=== PATIENT | female | born 1965 | race Caucasian/White ===

== ENCOUNTER → 2018-07-09 | Outpatient (CLI) | payer OTHER ==
[~2018-07-09] VITALS: Ht 157.5 cm; Wt 65.8 kg
[~2018-07-09] MED LIST: ACETAMINOPHEN-1 EAC1 PO; BIRTH CONTROL PO; FLEXERIL PO; HYDROCODON-ACE1 EAC7 PO; MEDROL DOSPAK21 TA1 PO
[2018-07-09 09:03] VITALS: BP 141/86
--- NOTE | 2018-07-09 09:26 | NUR ---
Pain Clinic Assessment: 1. History of Osteoarthritis: NONE OSTEOPHYTE IN SPINE History of Rheumatoid Arthritis: NONE 2. Height: 5 ft. 2 in. 157.5 cm. Weight: 145.0 lb. oz. 65.772 kg. Patient's BMI: 26.5 3. Vital Signs: BP: 141/86 Pulse: 93 Resp: 14 Temp: 02 Sat: 97 ECG Mon: 4. Pain Intensity: 8-9 5. Fall Risk: Dizziness: Y Needs help standing or walking: N Fallen in the last 3 months: N Fall risk comments: 6. Patient on Blood Thinner: None 7. History of Hypertension: N 8. Opioid Therapy greater than 6 weeks: Opiate Contract Signed: 9. Risk Assessment Tool Provided: 10. Functional Assessment Tool: 11. Recreational Drug Use: Never Drug Type: Tobacco Use: Never Smoker Tobacco Type: Amount or Packs/day: How Many Years: Alcohol Use: No Frequency: Quant:
--- NOTE | 2018-07-10 12:39 | HPC ---
[facility] [address] [place] [address] PAIN MANAGEMENT CONSULTATION Name: OMAR SUTHERLAND Room #: REG [facility]..#: [id number] Admission: 07/09/18 ������������������ Attend Phys: Abad Mac DO Discharge: ������������������ Date of : 67 Report #: [id number] THIS REPORT FOR: //name// CC: Verona Will [facility] physician/PCP Abad Mac DATE OF SERVICE: 07/09/2018 REFERRING PHYSICIAN: Nurse practitioner, Verona Will. CHIEF COMPLAINT: Neck pain, right upper extremity pain with paresthesias. HISTORY OF PRESENT ILLNESS: As you know, the patient is a very pleasant 52-year-old female who had a long-standing history of neck pain, right upper extremity pain with paresthesias. The patient states the pain began without inciting injury or trauma in 2005. She stated at that time, she was mainly experiencing cervical pain without radiation into the hand. Over the past couple of months, after a game of pickle ball, the patient began to experience increasing right neck pain radiating into the hand. She denies any specific injury or trauma that may have led to symptom occurrence. She sought evaluation through her primary care physician, who gave her a physician-directed physical therapy program to begin at home. This along with the use of a Depo-Medrol shot in the right buttock area and a Medrol Dosepak began to improve symptoms, but unfortunately, only transiently. She was subsequently sent for MRI of the cervical spine, which showed changes at the C5-C6 level and she was then referred to our clinic to discuss options for treatment, as conservative measures have been ineffective. The patient reports today pain is continuous, steady and constant; describes the pain as burning, crushing, gnawing, throbbing, sharp, stabbing, tender, numbness and tingling. Places current pain score at 8.5/10, daily average at 8-10/10 and worst the pain has been is "43/10". The patient indicates pain is exacerbated with lying on her side or sitting in any position. Exercise and ice tends to improve symptoms. She has been referred to our service for evaluation for potential cervical radiculopathy. PAST MEDICAL HISTORY: Noncontributory. PAST SURGICAL HISTORY: 1. Jaw augmentation with dental implant. 2. Cholecystectomy. 3. Ankle surgery. SOCIAL HISTORY: The patient denies tobacco, alcohol, IV or illicit drug use. 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 [place] [address] PAIN MANAGEMENT CONSULTATION Name: OMAR SUTHERLAND Room #: REG [facility] Alissa.#: [id number] Admission: 07/09/18 ������������������ Attend Phys: Abad Mac DO Discharge: ������������������ Date of : 67 Report #: [id number] receiving workmen's compensation nor is she trying to obtain disability benefits. She is not in litigation in regards to her pain. She is unaccompanied at today's visit. REVIEW OF SYSTEMS: Positive for recent weight change, fatigue and weakness, frequent and recurrent headaches, wearing corrective eyewear, lightheadedness and dizziness, numbness and tingling sensations and chronic right neck pain. All other review of systems negative per 12-point review of systems, other than those listed in the history of present illness. Pain impact score 60/70, indicating near-complete interference in daily activities secondary to pain. ALLERGIES: BENADRYL. CURRENT MEDICATIONS: Tylenol 3 with codeine 1 tab p.o. at bedtime, cyclobenzaprine 10 mg t.i.d. p.r.n., Medrol Dosepak 4 mg dose 2 tabs remaining and daily control pill. IMAGING DATA: MRI of the cervical spine obtained 06/27/2018 shows C2-C3, C3-C4 unremarkable. C4-C5 shows minimal disk bulge, no central canal neural foraminal stenosis. C5-C6, general disk osteophyte complex with paracentral disk protrusion, measuring 5 mm, contacting anterior spinal cord, resulting in moderate right paracentral canal narrowing all the way down to a 6-7 mm; mild left and moderate right neural foraminal stenosis due to uncovertebral joint hypertrophy. C6-C7 and C7-T1 unremarkable. PHYSICAL EXAMINATION: VITAL SIGNS: Blood pressure 141/86, pulse is 93, respiratory rate 14 and unlabored. The patient is 97% on room air. Height 5 feet 2 inches tall, weight 145 pounds and BMI calculated 26.5. GENERAL: Well-developed, well-nourished and well-hydrated 52-year-old female. She appears her stated age. She is in no acute distress. She is awake, alert and oriented x 3. Current pain score is rated at 8.5/10. HEENT: Normocephalic, atraumatic. Pupils equal, round and reactive to light. Extraocular muscles are intact. Sclerae nonicteric, without injection. NEUROLOGIC: Cranial nerves 2-12 grossly intact. Speech is fluent. The patient deemed an excellent historian. LUNGS: Clear. No wheezes, rhonchi or rales. CARDIOVASCULAR: Regular. No appreciable gallop. No rub. ABDOMEN: Soft, nontender and nondistended. Normoactive bowel sounds. EXTREMITIES: Show no clubbing, no cyanosis and no edema. MUSCULOSKELETAL: Upper extremity strength is equal and symmetrical, 5/5. Muscle bulk and tone equal and symmetrical when comparing left upper extremity to right. She has equal and symmetrical deep tendon reflexes at biceps, brachialis and triceps, 2+/4. Normal capillary refill in the hands bilaterally. [facility] [address] [place] [address] PAIN MANAGEMENT CONSULTATION Name: OMAR SUTHERLAND [id number] Admission: 07/09/18 ������������������ Attend Phys: Abad Mac DO Discharge: ������������������ Date of : 67 Report #: [id number] There is decreased tactile sensation along the C5 dermatome on the right when compared to the left, noted with light touch and normal pinprick sensation. Spurling's test positive right, negative left. There is a limitation to rotation and lateral flexion to the right due to increasing pain; negative symptoms to the left. ASSESSMENT: 1. Cervical radiculopathy. 2. Displacement of cervical intervertebral disk with radiculopathy. 3. Cervical spondylosis with radiculopathy. 4. Chronic intractable pain. PLAN: 1. Based on today's physical exam, the history the patient provides, the description of the patient uses in regards to pain as well as the distribution of symptoms and the findings of the MRI at the C5-C6 level, the likely source of the patient's pain is a cervical radiculopathy. We discussed with the patient treatment options for cervical radiculopathy. The following was discussed with the patient today. We discussed formalized physical therapy program with traction techniques. This could provide some improvement in symptoms. The patient is currently under physician-controlled home physical therapy program, which apparently is providing only improvement in mobility, but has not improved overall pain. We discussed medication management, adding neuropathic pain medications in the form of either gabapentin, Lyrica, nortriptyline, amitriptyline or Cymbalta. We discussed cervical epidural injection under fluoroscopic guidance, for which the patient was referred to our clinic. We discussed spinal cord stimulator therapy as an option as well as surgical options. After reviewing the risks and benefits of all proposed treatment options, the patient chose to move forward with a cervical epidural injection. 2. The patient was advised that third democrat payer restrictions require that authorization be obtained before the patient could undergo a cervical epidural injection. Authorization should be done within the next 6-8 hours as the patient ensured is a same-day approval process. We will begin the process immediately. We will have the patient return as quickly as possible once we have received this authorization. 3. Per the patient's request, we made no changes in medication management. We did discuss the opportunity to start neuropathic medications, but at this point, the patient does not wish to initiate medications if she can avoid doing so. We will discuss this again at followup visit if needed. 4. We wish to thank nurse practitioner, Verona Will, for the referral of the patient to our clinic. We will keep you apprised of her response to treatment as we address her cervical radicular symptoms involving her neck and right upper [address] [address] PAIN MANAGEMENT CONSULTATION Name: OMAR SUTHERLAND Room #: REG [facility] Guerra#: [id number] Admission: 07/09/18 ������������������ Attend Phys: Abad Mac DO Discharge: ������������������ Date of : 67 Report #: [id number] extremity. Again, we wish to thank you for the opportunity to see this patient in consultation. ��������������������������������������������� <ELECTRONICALLY SIGNED> ���������������������������������������� By: Abad Mac DO ��������������������������������������������� 07/10/18 [id number] Abad Mac DO /nt
== END ==
LOC: PAIN 06:57
DX: M50.122 Cervical disc disorder at C5-C6 level with radiculopathy (principal); M47.22 Other spondylosis with radiculopathy, cervical region; G89.4 Chronic pain syndrome; R20.2 Paresthesia of skin; Z90.49 Acquired absence of other specified parts of digestive tract

== ENCOUNTER → 2018-07-10 | Outpatient (CLI) | payer OTHER ==
[~2018-07-10] VITALS: Ht 157.5 cm; Wt 65.8 kg
--- NOTE | ~2018-07-10 | HPC ---
[facility] [address] [place] [address] PAIN MANAGEMENT CONSULTATION Name: OMAR SUTHERLAND Room #: REG [facility].#: [id number] Admission: 07/10/18 ������������������ Attend Phys: Abad Mac DO Discharge: ������������������ Date of : 67 Report #: [id number] THIS REPORT FOR: //name// CC: Verona Will NP [facility] physician/PCP Abad Mac DATE OF SERVICE: 07/10/2018 CHIEF COMPLAINT: Neck pain, right upper extremity pain and paresthesias. HISTORY OF PRESENT ILLNESS: As you know, the patient is a very pleasant 52-year-old female who was seen in consultation yesterday for cervical radiculopathy. The patient states that she began experiencing pain in 2005. She "just put up with it," but unfortunately her symptoms began to increase. She subsequently followed up with her nurse practitioner who sent her for MRI. The findings were such the patient was then referred to our clinic to discuss possible cervical epidural injections or other treatment options for cervical radiculopathy. The patient was seen yesterday, but precertification was required before she could undergo her requested cervical epidural injection. She made today's appointment to undergo the procedure in hopes of improving pain. Today, she is placing pain at 8-9/10. She returns to undergo the first in series of cervical epidural injections under fluoroscopic guidance. ALLERGIES: BENADRYL. CURRENT MEDICATIONS: Tylenol 3 with Codeine, cyclobenzaprine, hydrocodone. SOCIAL HISTORY: The patient denies tobacco, alcohol, IV or illicit drug use. 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 She is working, not receiving workmen's compensation, unaccompanied today. IMAGING: No new imaging available. PHYSICAL EXAMINATION: VITAL SIGNS: Blood pressure 122/81, pulse 102, respiratory rate 14 and unlabored. The patient is 100% on room air. Height 5 feet 2 inches tall, weight 145 pounds, BMI calculated 26.5. GENERAL: Well-developed, well-nourished, well-hydrated 52-year-old female, appearing her stated age. She is placing current pain score at 8-9/10. HEENT: Normocephalic, atraumatic. Pupils equal, round, reactive to light. EXTREMITIES: Show no clubbing, no cyanosis, and no edema. MUSCULOSKELETAL: Upper extremity strength equal and symmetrical 5/5. Muscle bulk and tone equal and symmetrical when comparing left upper extremity to right. Deep tendon reflexes are symmetrical, 2+/4, biceps, brachioradialis and triceps. Decreased tactile sensation along the C6 dermatome on right. [address] [address] PAIN MANAGEMENT CONSULTATION Name: OMAR SUTHERLAND Room #: REG [facility] Guerra#: [id number] Admission: 07/10/18 ������������������ Attend Phys: Abad Mac DO Discharge: ������������������ Date of : 67 Report #: [id number] test positive right. ASSESSMENT: 1. Cervical radiculopathy. 2. Displacement of cervical intervertebral disk with radiculopathy. 3. Cervical spondylosis with radiculopathy. 4. Chronic intractable pain. PLAN: 1. The patient returns today in followup visit, having received preauthorization to undergo cervical epidural injection under fluoroscopic guidance. The patient returns, reporting no change in her overall medical history over the last 24 hours. She returns to undergo first in a series of cervical epidural injections. 2. No medication changes were made at today's visit. We did renew the patient's hydrocodone 5/325 one tab p.o. q.8 hours p.r.n. for pain. I have given the patient #45, advised the patient to take the medication as directed. 3. We will see the patient back in followup visit in 30 days to discuss the possibility of a second cervical epidural injection if necessary. We also discussed the efficacy of today's procedure. DESCRIPTION OF PROCEDURE: C7-T1 cervical epidural steroid injection under fluoroscopic guidance. This is the first procedure of the first series that the patient is undergoing. After obtaining written consent, the patient was taken back to the fluoroscopy suite and placed in a prone position with separate pillows under chest and forehead to decrease cervical lordosis. The skin overlying the cervical area was prepped and draped in an aseptic fashion. The C7-T1 vertebral interspace was identified by AP fluoroscopy. The skin and subcutaneous tissue overlying the target site of injection was anesthetized using 3 mL of 1% lidocaine. A 20-gauge 3-1/2 inch Tuohy needle was advanced under fluoroscopic guidance toward the epidural space using a midline approach. The epidural space was identified using a loss of resistance to air technique. After negative aspiration for heme or cerebrospinal fluid, a total of 1 mL of Omnipaque was injected. A cervical epidurogram was confirmed using AP and oblique fluoroscopy. After negative aspiration for heme or cerebrospinal fluid, 5 mL of a solution containing 2 mL 40 mg per mL, 80 mg total triamcinolone, 3 mL lidocaine 1% was injected in increments. Contrast spread was noted from posterior epidural space. The needle was then retracted approximately mcc and the needle track was flushed with 1 mL of 1% lidocaine. There were no apparent new sensory deficits in the upper extremities present following the procedure. A sterile bandage was placed over the injection site. [address] [place] [address] PAIN MANAGEMENT CONSULTATION Name: OMAR SUTHERLAND Room #: REG [facility].#: [id number] Admission: 07/10/18 ������������������ Attend Phys: Abad Mac DO Discharge: ������������������ Date of : 67 Report #: [id number] The heart rate, pulse oximetry and blood pressure were continuously monitored after the procedure. There were no apparent complications. The patient tolerated the procedure well and was carefully escorted in the recovery room in stable condition. After meeting discharge criteria, the patient was discharged home. ��������������������������������������������� ���������������������������������������� By: ��������������������������������������������� [id number] Abad Mac DO /nt
[2018-07-10 09:24] VITALS: BP 122/81
--- NOTE | 2018-07-10 09:25 | NUR ---
Pain Clinic Assessment: 1. History of Osteoarthritis: NONE OSTEOPHYTE IN SPINE History of Rheumatoid Arthritis: NONE 2. Height: 5 ft. 2 in. 157.5 cm. Weight: 145.0 lb. oz. 65.772 kg. Patient's BMI: 26.5 3. Vital Signs: BP: 122/81 Pulse: 102 Resp: 14 Temp: 02 Sat: 100 ECG Mon: 4. Pain Intensity: 8-9 5. Fall Risk: Dizziness: N Needs help standing or walking: N Fallen in the last 3 months: N Fall risk comments: 6. Patient on Blood Thinner: None 7. History of Hypertension: N 8. Opioid Therapy greater than 6 weeks: Opiate Contract Signed: 9. Risk Assessment Tool Provided: 10. Functional Assessment Tool: 11. Recreational Drug Use: Never Drug Type: Tobacco Use: Never Smoker Tobacco Type: Amount or Packs/day: How Many Years: Alcohol Use: No Frequency: Quant:
== END | disposition home or self-care (01) ==
LOC: PAIN 07:01
DX: M50.10 Cervical disc disorder with radiculopathy, unspecified cervical region (principal); M47.22 Other spondylosis with radiculopathy, cervical region; G89.29 Other chronic pain; Z88.8 Allergy status to other drugs, medicaments and biological substances; Z79.891 Long term (current) use of opiate analgesic; Z79.899 Other long term (current) drug therapy; Z98.890 Other specified postprocedural states